=== PATIENT | female | born 1945 | race Caucasian/White ===

== ENCOUNTER 2016-07-10 00:46 | Emergency (ER) | payer OTHER ==
[~2016-07-10] VITALS: Ht 165.1 cm; Wt 81.0 kg
[2016-07-10 01:16] VITALS: BP 157/88
== END 2016-07-10 04:30 | disposition home or self-care (01) ==
LOC: ER 04:29
DX: T49.5X5A Adverse effect of ophthalmological drugs and preparations, initial encounter (principal); R07.0 Pain in throat; Z98.49 Cataract extraction status, unspecified eye; Y92.018 Other place in single-family (private) house as the place of occurrence of the external cause
CPT/HCPCS: 99281

== ENCOUNTER 2016-11-19 17:23 | Emergency (ER) | payer MEDICARE, OTHER ==
[~2016-11-19] VITALS: Ht 165.1 cm; Wt 80.0 kg
[2016-11-19] MEDS ORDERED: OMEP20TA2 PO (17:31)
[2016-11-19 23:37] VITALS: BP 129/57
== END 2016-11-20 00:20 | disposition left against medical advice (07) ==
LOC: ER 21:13
DX: M25.572 Pain in left ankle and joints of left foot (principal); S96.912A Strain of unspecified muscle and tendon at ankle and foot level, left foot, initial encounter; K21.9 Gastro-esophageal reflux disease without esophagitis; Z90.710 Acquired absence of both cervix and uterus; Z90.49 Acquired absence of other specified parts of digestive tract; W01.0XXA Fall on same level from slipping, tripping and stumbling without subsequent striking against object, initial encounter; Y93.89 Activity, other specified; Y92.018 Other place in single-family (private) house as the place of occurrence of the external cause
CPT/HCPCS: 73610; 73630; 99284

== ENCOUNTER 2019-05-29 22:08 | Inpatient (IN) | payer OTHER ==
[~2019-05-29] VITALS: Ht 167.6 cm; Wt 73.5 kg
[~2019-05-29 22:08] MED LIST: OMEP20TA2 PO
[2019-05-29 23:53] LABS: CLARITY URINE CLEAR (CLEAR); COLOR URINE YELLOW (YELLOW); KETONES URINE 2+ (NEGATIVE); LEUKOCYTE ESTERASE URINE 3+ (NEGATIVE); NITRITE URINE NEGATIVE (NEGATIVE); OCCULT BLOOD URINE NEGATIVE (NEGATIVE); PH URINE 7.5 (4.5-8.0); PROTEIN URINE NEGATIVE (NEGATIVE); SPECIFIC GRAVITY URINE 1.009 (1.005-1.030)
[2019-05-30 01:07] LABS: BASOPHILS % 1.4 % (0.0-2.0); EOSINOPHILS % 0.7 % (0.0-5.0); HEMATOCRIT. 40.6 % (36.0-48.0); HEMOGLOBIN. 13.2 g/dL (12.0-16.0); LYMPHOCYTES % 22.7 % (20.0-50.0); MEAN CORPUSCULAR HEMOGLOBIN 26.8 pg (28.0-32.0); MEAN CORPUSCULAR VOLUME 82.2 fL (81.0-99.0); MEAN PLATELET VOLUME 9.2 fl (7.4-10.4); MONOCYTES % 9.4 % (2.0-8.0); NEUTROPHILS % 65.8 % (40.0-76.0); PLATELET 193 x1000/uL (130-400); RED BLOOD CELL COUNT 4.94 mill/uL (4.2-5.4)
[2019-05-30 01:21] LABS: CHLORIDE 108 mEq/L (98-107)
[2019-05-30] MEDS ORDERED: ACETAMINOPHEN 325MG TABLET PO STA (02:13)
[2019-05-30] MEDS ORDERED: FAMOTIDINE 20MG TABLET PO ONE (02:15)
[2019-05-30] MEDS ORDERED: POTASSIUM CHLORIDE 20MEQ TABLET SR PO SCH (08:34)
[2019-05-30 12:00] VITALS: BP_SYST 127; BP_SYST 143; BP_DIAS 55; BP_DIAS 68
[2019-05-30] MEDS ORDERED: DOCUSATE SODIUM 100MG CAPSULE PO PRN (12:45)
[2019-05-30] MEDS ORDERED: MAGNESIUM/ALUMINUM HYDROXIDE/SIMETHICONE 30ML UDC PO PRN (12:45)
[2019-05-30] MEDS ORDERED: NA PHOS,M-B/NA PHOS,DI-BA ENEMA 118ML PR PRN (12:45)
[2019-05-30] MEDS ORDERED: DIPHENHYDRAMINE 50MG/ML VIAL IV PRN (12:45)
[2019-05-30] MEDS ORDERED: IPRATROPIUM/ALBUTEROL 0.5-3(2.5)MG/3ML NEB NEB PRN (12:45)
[2019-05-30] MEDS ORDERED: GUAIFENESIN 200MG/10ML SUGAR FREE UDC PO PRN (12:45)
[2019-05-30] MEDS ORDERED: LORAZEPAM 0.5MG TABLET PO PRN (12:45)
[2019-05-30] MEDS ORDERED: ACETAMINOPHEN 325MG TABLET PO PRN (12:45)
[2019-05-30] MEDS ORDERED: ONDANSETRON HCL 4MG/2ML INJ IV PRN (12:45)
[2019-05-30] MEDS ORDERED: CLONIDINE 0.1MG TABLET PO PRN (12:45)
[2019-05-30] MEDS ORDERED: ACETAMINOPHEN 650MG SUPP PR PRN (12:45)
[2019-05-30] MEDS ORDERED: HYDROCODONE/ACETAMINOPHEN 5/325MG TABLET PO PRN (12:45)
[2019-05-30] MEDS ORDERED: ENOXAPARIN 40MG/0.4ML SYR SUBCUT SCH (13:00)
[2019-05-30 13:32] LABS: BG BASE EXCESS 0.1 mmol/L (-2.0-2.0); BG CARBOXYHEMOGLOBIN 0.4 % (0.5-1.5); BG DEOXYHEMOGLOBIN 2.8 % (0.0-5.0); BG FRACTION INSPIRED OXYGEN 21; BG HCO3 ACT 24.5 mmol/L (22.0-26.0); BG METHEMOGLOBIN 0.3 % (0.0-1.5); BG OXYGEN SATURATION 97.2 % (92.0-98.5); BG OXYHEMOGLOBIN 96.5 % (94.0-97.0); BG PCO2 39.2 mmHg (35.0-45.0); BG PH 7.414 (7.350-7.450); BG PO2 88.6 mmHg (75.0-100.0); BG SAMPLE SITE RIGHT RADIAL; BG TOTAL HEMOGLOBIN 13.7 g/dL (12.0-18.0); BG VENT MODE ROOM AIR
[2019-05-30 13:48] LABS: *AMPHETAMINES SCREEN URINE NEGATIVE (NEGATIVE); *BARBITURATES SCREEN URINE NEGATIVE (NEGATIVE); *BENZODIAZEPINES SCREEN URINE NEGATIVE (NEGATIVE); *COCAINE SCREEN URINE NEGATIVE (NEGATIVE); CANNABINOID URINE SCREEN NEGATIVE (NEGATIVE); METHADONE URINE SCREEN NEGATIVE (NEGATIVE); OPIATES URINE SCREEN NEGATIVE (NEGATIVE); PHENCYCLIDINE URINE SCREEN NEGATIVE (NEGATIVE)
[2019-05-30] MEDS ORDERED: CEFTRIAXONE 1 G PREMIX 50 ML IV SCH (15:00)
[2019-05-30] MEDS: DEXT 5%/0.45% NACL 1000ML 1,000 ML IV SCH (15:52)
[2019-05-30 16:00] VITALS: BP 131/72
[2019-05-30] MEDS ORDERED: AZITHROMYCIN 500 MG in DEXT 5% WATER 250 ML IV SCH (16:00)
[2019-05-30 20:00] VITALS: BP 146/71
[2019-05-30] MEDS ORDERED: FAMOTIDINE 20MG TABLET PO SCH (21:00)
[2019-05-30 23:52] LABS: CREATINE KINASE 92 IU/L (26-192)
[2019-05-30 23:54] LABS: CREATINE KINASE MB FRACTION 1.3 ng/mL (0.5-3.6)
[2019-05-31] VITALS: BP 132/62
[2019-05-31 00:32] LABS: D-DIMER 0.33 mg/L FEU (<0.50); INR 1.2; PROTHROMBIN TIME 13.2 sec (9.6-11.0)
[2019-05-31 04:00] VITALS: BP 130/65
[2019-05-31] MEDS: DEXT 5%/0.45% NACL 1000ML 1,000 ML IV SCH (06:14)
[2019-05-31 08:00] VITALS: BP 102/52
[2019-05-31 11:13] LABS: BASOPHILS % 1.1 % (0.0-2.0); EOSINOPHILS % 2.1 % (0.0-5.0); HEMATOCRIT. 39.8 % (36.0-48.0); HEMOGLOBIN. 12.6 g/dL (12.0-16.0); LYMPHOCYTES % 30.3 % (20.0-50.0); MEAN CORPUSCULAR HEMOGLOBIN 26.3 pg (28.0-32.0); MEAN PLATELET VOLUME 9.4 fl (7.4-10.4); MONOCYTES % 9.3 % (2.0-8.0); NEUTROPHILS % 57.2 % (40.0-76.0); PLATELET 180 x1000/uL (130-400); RED BLOOD CELL COUNT 4.79 mill/uL (4.2-5.4); RED CELL DISTRIBUTION WIDTH 15.3 % (11.6-14.6)
[2019-05-31 11:14] LABS: CHLORIDE 110 mEq/L (98-107)
[2019-05-31 11:24] LABS: LDL CHOLESTEROL 71 mg/dL (5-100)
[2019-05-31 11:25] LABS: HDL CHOLESTEROL 50 mg/dL (40-59)
== END 2019-05-31 14:10 | disposition left against medical advice (07) | DRG 204 ==
LOC: ER 22:41 → 7EST 05-30 06:24 → EDBEDREQ 05-30 06:29 → EDBEDREQTM 05-30 06:29 → EDBEDREQ 05-30 06:41 → ENRESERV 05-30 07:35 → CANRESERV 05-30 07:35 → ENRESERV 05-30 10:19 → SUPCPDRO 05-30 11:08
PROVIDERS: ADMIT Internal Medicine; ATTEND Internal Medicine
DX: R06.03 Acute respiratory distress (principal); Z86.718 Personal history of other venous thrombosis and embolism; K21.9 Gastro-esophageal reflux disease without esophagitis; E87.6 Hypokalemia; E86.0 Dehydration; Z20.828 Contact with and (suspected) exposure to other viral communicable diseases; D72.819 Decreased white blood cell count, unspecified; Z90.49 Acquired absence of other specified parts of digestive tract; Z90.710 Acquired absence of both cervix and uterus; Z79.899 Other long term (current) drug therapy; Z87.440 Personal history of urinary (tract) infections
CPT/HCPCS: 36415; 36600; 71045; 80053; 80061; 80305; 81003; 82375; 82550; 82553; 82805; 83880; 84145; 84439; 84443; 84484; 85025; 85379; 87070; 87635; 87804; 93005; 99285; J0456; J0696; J1650; J7060